=== PATIENT | male | born 1950 | race Caucasian/White ===

== ENCOUNTER → 2017-10-20 | Outpatient (CLI) | payer OTHER, BC ==
[~2017-10-20] MED LIST: GADOBUTROL 10 ML VIAL IVP ONE
== END ==
LOC: FIMAGING 14:26
PROVIDERS: ATTEND Orthopaedic Surgery
DX: M51.36 Other intervertebral disc degeneration, lumbar region (principal); M48.061 Spinal stenosis, lumbar region without neurogenic claudication; M46.96 Unspecified inflammatory spondylopathy, lumbar region; M51.37 Other intervertebral disc degeneration, lumbosacral region; M48.07 Spinal stenosis, lumbosacral region; M46.97 Unspecified inflammatory spondylopathy, lumbosacral region
CPT/HCPCS: 72158; A9585

== ENCOUNTER → 2018-07-31 | Outpatient (CLI) | payer OTHER, BC | LOC: BHFA 08:30 | PROVIDERS: ATTEND Internal Medicine Cardiovascular Disease | DX: Z01.810 Encounter for preprocedural cardiovascular examination (principal); R94.31 Abnormal electrocardiogram [ECG] [EKG]; I25.10 Atherosclerotic heart disease of native coronary artery without angina pectoris | CPT/HCPCS: 78452; 93017; A9500; J2785 ==